=== PATIENT | female | born 2000 ===

== ENCOUNTER 2021-10-28 18:01 | Emergency (ER) | payer OTHER ==
[~2021-10-28] VITALS: Ht 160 cm; Wt 74.0 kg
[2021-10-28 18:50] VITALS: BP 114/54
== END 2021-10-28 19:38 | disposition left against medical advice (07) ==
LOC: EMS 18:08
DX: R11.2 Nausea with vomiting, unspecified (principal); Z53.21 Procedure and treatment not carried out due to patient leaving prior to being seen by health care provider